=== PATIENT | female | born 1985 | race Caucasian/White ===

== ENCOUNTER 2019-11-25 15:38 | Emergency (ER) | payer SELFPAY ==
[2019-11-25 15:48] VITALS: BP 124/78; PULSE 83; RESP 16; TEMP 36.7; O2SAT 98; BMI 25.7
--- NOTE | 2019-11-25 15:50 | PC.NURSE ---
[employer] AT BEDSIDE
--- NOTE | 2019-11-25 15:53 | HMH.EDUTC ---
[facility] [place] Clinical Impression: Diarrhea Qualifiers: Diarrhea type: unspecified type Qualified Code(s): R19.7 - Diarrhea, unspecified Disposition: Home, Self-Care Condition on Discharge: Good Instructions: Diarrhea, Preventing the Spread of Coronavirus Discharge Instructions Additional Instructions: Make sure that you are drinking plenty of fluids *Follow up with Family Doctor if symptoms return or worsen Return if needed Straight to ER if any life threatening symptoms Referrals: Provider,Referral, MD [Primary Care Provider] - As needed Forms: Work/School Release Time of Disposition: 15:58 Medical Decision Making - Natalio Inquiry Pt receiving controlled substance: No Natalio was queried for this patient: No Vital Signs: 11/25/19 15:48 Temperature 98.1 F Temperature Source Oral Pulse Rate [Right Radial] 83 Respiratory Rate 16 Blood Pressure [Right Arm] 124/78 Blood Pressure Mean [Right Arm] 93 Blood Pressure Source [Right Arm] Automatic Cuff Blood Pressure Position [Right Arm] Sitting 02 Sat by Pulse Oximetry 98 Oxygen Delivery Method Room Air - Reevaluation(s) Time: 16:01 Reevaluation #1: Patient states that she is not having any diarrhea today, denies abdominal pain, denies feeling of being sick at this time Reports need a note for work [facility] [place] - General Stated complaint: needs a release to return ti work Time Seen by Provider: 11/25/19 15:54 Mode of Arrival: Ambulatory Source of Information: Patient Limitations: No Limitations Description of Symptoms (Recalled from Triage Doc. by RN): PT STATES THAT SHE HAD TO CALL IN TO WORK YESTERDAY FOR [employer] AND SHE ADVISES THAT SHE NEEDS A NOTE IN ORDER TO RETURN BECAUSE THEY SAID SHE HAD TO BE RELEASED FROM MEDICAL CARE. HEENT Symptoms (Recalled from RN notes): No Resp Symptoms (Recalled from RN notes): No Skin Symptoms (Recalled from RN notes): No MS Symptoms (Recalled from RN notes): No Functional Status (Recalled from RN notes): N/A - History of Present Illness Provider Complaint: Patient state thats she has a history of intermittent diarrhea on and off that has been happening for years State that she hasnt been dx with irritable bowel but suspected States that yesterday she hadn't had a good bowel movement for about 2 weeks and she she woke up yesterday with diarrhea. States that she had several eppisodes yesterday and was unable to work so she called in States that work told her she had to be seen before she would be allowed to come back States that today diarrhea has stopped, denies fever, denies sore throat, denies chills, denies recent travel or known exposure to covid 19 - Related Data Home Medications Medication Instructions Recorded Confirmed No Known Home Medications 04/30/19 10/06/19 Allergies Allergy/AdvReac Type Severity Reaction Status Date / Time Penicillins Allergy Verified 10/06/19 13:53 sulfamethoxazole Allergy Verified 10/06/19 13:53 [From ] trimethoprim [From ] Allergy Verified 10/06/19 13:53 - Worker's Comp Is this a Worker's Comp case?: No [facility] History - Hepatitis A Screen Drug use history?: No High risk sexual behaviors?: No History of sexually transmitted infection?: No Currently employed?: No Childcare worker?: No Do you have indoor plumbing?: Yes Do you have electricity?: Yes Attestation statement:: This patient has been screened for Hepatitis A risk factors. I have reviewed the patient's past medical history: Yes Medical History: Denies:: Cancer, Diabetes Mellitus Type 1, Diabetes Mellitus Type 2, MRSA Other Surgeries: Yes: No Previous Surgery Amputation: No Fractures: No - Social History Smoking Status: Former smoker Alcohol Intake: never Alcohol Intake Frequency:: a few times a month Substance Use Type: unknown Occupational Status: employed Family Hx:: Non-contributory ROS Obtained: Yes All systems reviewed & no additional complaints, Yes Systems reviewed as
[2019-11-25 16:22] VITALS: BP 124/78; PULSE 83; RESP 16; TEMP 36.7; O2SAT 98
== END 2019-11-25 16:23 | disposition home or self-care (01) ==
PROVIDERS: Emergency Provider Nurse Practitioner
DX: R19.7 Diarrhea, unspecified (principal); Z88.0 Allergy status to penicillin; Z88.2 Allergy status to sulfonamides
CPT/HCPCS: 99201

== ENCOUNTER 2021-03-28 15:24 | Emergency (ER) | payer SELFPAY ==
[2021-03-28 17:19] VITALS: BP 130/84; PULSE 64; RESP 12; TEMP 36.9; O2SAT 100; BMI 26.1
--- NOTE | 2021-03-28 17:20 | XR_ITS ---
PROCEDURE INFORMATION: Exam: XR Chest Exam date and time: 03/28/2021 5:20 PM Age: 35 years old Clinical indication: Chest wall pain; Patient HX: Posterior left sided back pain; Additional info: SOB TECHNIQUE: Imaging protocol: XR of the chest. Views: 2 views. COMPARISON: CR CXR2V XR chest 2V 11/17/2017 1:22 PM FINDINGS: Lungs: Unremarkable. No consolidation. Pleural spaces: Unremarkable. No pleural effusion. No pneumothorax. Heart/Mediastinum: Unremarkable. No cardiomegaly. Bones/joints: Unremarkable. IMPRESSION: No acute findings.
--- NOTE | 2021-03-28 17:44 | HMH.EDUTC ---
[facility] [place] Disposition Clinical Impression: Pleurisy Disposition: Home, Self-Care Condition on Discharge: Good Instructions: Pleurisy, DI for Pleurisy Additional Instructions: Drink plenty of fluids. Take tylenol or ibuprofen for pain or fever. Take the medications as directed. Follow up with your regular doctor. GO TO THE ER FOR ANY WORSENING SYMPTOMS The cough medication (promethazine dm) will make you drowsy, so don't drive or operate heavy machinery after taking it. Prescriptions: methylPREDNISolone [Medrol] 4 mg PO DIRECTED 6 Days #21 tab.ds.pk Transmission Status: Received by [facility] # Azithromycin [Z-Jaret 250mg Tab*] 250 mg PO UD DOSE PK #6 tab Transmission Status: Received by [facility] # Referrals: Provider,Referral, [Primary Care Provider] - Time of Disposition: 17:46 Medical Decision Making - Medical Records Medical records reviewed: No: I reviewed the patient's medical records. - Natalio Inquiry Pt receiving controlled substance: No Vital Signs: 03/28/21 17:19 03/28/21 18:01 Temperature 98.4 F 98.4 F Temperature Source Oral Pulse Rate 64 Pulse Rate [Left] 64 Respiratory Rate 12 14 Blood Pressure 130/84 Blood Pressure [Right Arm] 130/84 Blood Pressure Mean [Right Arm] 99 02 Sat by Pulse Oximetry 100 [facility] [place] HPI - General Stated complaint: trouble breathing, back pain, headache Time Seen by Provider: 03/28/21 17:45 Mode of Arrival: Ambulatory Source of Information: Patient Limitations: No Limitations Description of Symptoms (Recalled from Triage Doc. by RN): pt c/o soa that comes and goes, lung pain, low grade fever and BENAVIDES. HEENT Symptoms (Recalled from RN notes): Yes (BENAVIDES) Resp Symptoms (Recalled from RN notes): Yes (soa and lung pain) Skin Symptoms (Recalled from RN notes): No MS Symptoms (Recalled from RN notes): No Functional Status (Recalled from RN notes): na - History of Present Illness Provider Complaint: She reports a cough and right sided middle back pain with deep breathing and cough - Related Data Previous Rx's Medication Instructions Recorded Azithromycin [Z-Jaret 250mg Tab*] 250 mg PO UD DOSE PK #6 tab 03/28/21 methylPREDNISolone [Medrol] 4 mg PO DIRECTED 6 Days #21 03/28/21 tab.ds.pk Allergies Allergy/AdvReac Type Severity Reaction Status Date / Time Penicillins Allergy Verified 10/06/19 13:53 sulfamethoxazole Allergy Verified 10/06/19 13:53 [From ] trimethoprim [From ] Allergy Verified 10/06/19 13:53 - Worker's Comp Is this a Worker's Comp case?: No [facility] History - Hepatitis A Screen Drug use history?: No High risk sexual behaviors?: No History of sexually transmitted infection?: No Currently employed?: No Childcare worker?: No Do you have indoor plumbing?: Yes Do you have electricity?: Yes Attestation statement:: This patient has been screened for Hepatitis A risk factors. I have reviewed the patient's past medical history: Yes Medical History: Denies:: Cancer, Diabetes Mellitus Type 1, Diabetes Mellitus Type 2, MRSA Other Surgeries: Yes: No Previous Surgery Amputation: No Fractures: No - Social History Smoking Status: Former smoker Alcohol Intake: never Alcohol Intake Frequency:: a few times a month Substance Use Type: unknown Occupational Status: employed Family Hx:: Non-contributory ROS Obtained: Yes All systems reviewed & no additional complaints - Constitutional Constitutional: Reports system reviewed and no additional complaints, except as docu - Eyes Eyes: Reports system reviewed and no additional complaints, except as docu - ENT Ears, Nose, Mouth, and Throat: Reports system reviewed and no additional complaints, except as docu - Cardiovascular Cardiovascular: Reports system reviewed and no additional complaints, except as docu - Respiratory Respiratory: Reports system reviewed and no additional complaints, except as docu -
[2021-03-28 18:01] VITALS: BP 130/84; PULSE 64; RESP 14; TEMP 36.9
== END 2021-03-28 18:10 | disposition home or self-care (01) ==
PROVIDERS: Emergency Provider Nurse Practitioner Family
DX: R09.1 Pleurisy (principal); M54.9 Dorsalgia, unspecified; Z88.0 Allergy status to penicillin; Z88.2 Allergy status to sulfonamides; Z87.891 Personal history of nicotine dependence
CPT/HCPCS: 71046; 99202; G0463

== ENCOUNTER → 2021-07-31 17:28 | Outpatient (CLI) | payer BC, SELFPAY | PROVIDERS: Visit Provider Nurse Practitioner Family | DX: Z20.822 Contact with and (suspected) exposure to COVID-19 (principal); J02.9 Acute pharyngitis, unspecified | CPT/HCPCS: C9803; U0003; U0005 ==

== ENCOUNTER 2021-08-01 14:41 | Emergency (ER) | payer BC, SELFPAY ==
[2021-08-01 14:55] VITALS: BP 124/89; PULSE 81; RESP 18; TEMP 36.8; O2SAT 99; BMI 26.7
[2021-08-01 15:00] LABS: UTC Strep Screen (Rapid) Negative (Negative)
--- NOTE | 2021-08-01 15:40 | HMH.EDUTC ---
[facility] [place] Disposition Clinical Impression: Acute bronchitis Qualifiers: Bronchitis organism: unspecified organism Qualified Code(s): J20.9 - Acute bronchitis, unspecified Sinusitis Qualifiers: Sinusitis location: unspecified location Chronicity: acute Recurrence: non-recurrent Qualified Code(s): J01.90 - Acute sinusitis, unspecified Disposition: Home, Self-Care Condition on Discharge: Good Instructions: Acute Bronchitis, DI for Sinusitis, DI for Acute Bronchitis Additional Instructions: Drink plenty of fluids. Take tylenol or ibuprofen for pain or fever. Take the medications as directed. Follow up with your regular doctor. GO TO THE ER FOR ANY WORSENING SYMPTOMS The cough medication (promethazine dm) will make you drowsy, so don't drive or operate heavy machinery after taking it. Prescriptions: Promethazine/Dextromethorphan [Promethazine-Dm Syrup] 5 ml PO Q6HP PRN #240 ml PRN Reason: Cough [facility] methylPREDNISolone [Medrol] 4 mg PO DIRECTED 6 Days #21 packet Transmission Status: [facility] guaiFENesin [Mucinex 600mg tablet] 1 - 2 tab PO BIDP PRN #30 tab PRN Reason: Congestion Transmission Status: [facility] Azithromycin [Z-Jaret 250mg Tab*] 250 mg PO UD DOSE PK #6 tab Transmission Status: [facility] Referrals: Provider,Referral, [Primary Care Provider] - Forms: Work/School Release Time of Disposition: 16:33 Medical Decision Making - Medical Records Medical records reviewed: No: I reviewed the patient's medical records. - Natalio Inquiry Pt receiving controlled substance: No Vital Signs: 08/01/21 14:55 08/01/21 16:39 Temperature 98.2 F 98.2 F Temperature Source Oral Pulse Rate 81 Pulse Rate [Left] 81 Respiratory Rate 18 18 Blood Pressure 124/89 Blood Pressure [Right Arm] 124/89 Blood Pressure Mean [Right Arm] 100 02 Sat by Pulse Oximetry 99 - Lab Data Lab results reviewed: Yes: I reviewed the patient's lab results. Lab Results 08/01/21 14:54: Strep Scn Rapid Clinic Negative Orders (Tests/Meds): ORDERS Category Date Time Status Strep Screen Confirmation Routine Micro 08/01/21 14:54 Received [facility] [place] HPI - General Stated complaint: cough,runny nose,sore throat Time Seen by Provider: 08/01/21 15:40 Mode of Arrival: Ambulatory Source of Information: Patient Limitations: No Limitations Description of Symptoms (Recalled from Triage Doc. by RN): pt c/o congestion, cough, nasal drainage and a sore throat. pt exposed to covid at work. pt has had 3 negative covid tests in the last two days. HEENT Symptoms (Recalled from RN notes): Yes Resp Symptoms (Recalled from RN notes): Yes Skin Symptoms (Recalled from RN notes): No MS Symptoms (Recalled from RN notes): No Functional Status (Recalled from RN notes): wnl - History of Present Illness Provider Complaint: She states that she has had chest congestion, sinus congestion, productive cough, and malaise for the past 3 days. She works at a [employer]. She has had 3 negative covid-19 test since her symptoms began. - Related Data Previous Rx's Medication Instructions Recorded Azithromycin [Z-Jaret 250mg Tab*] 250 mg PO UD DOSE PK #6 tab 08/01/21 Promethazine/Dextromethorphan 5 ml PO Q6HP PRN #240 ml 08/01/21 [Promethazine-Dm Syrup] guaiFENesin [Mucinex 600mg tablet] 1 - 2 tab PO BIDP PRN #30 tab 08/01/21 methylPREDNISolone [Medrol] 4 mg PO DIRECTED 6 Days #21 08/01/21 packet Allergies Allergy/AdvReac Type Severity Reaction Status Date / Time Penicillins Allergy Verified 07/31/21 15:19 sulfamethoxazole Allergy Verified 07/31/21 15:19 [From ] trimethoprim [From ] Allergy Verified 07/31/21 15:19 - Worker's Comp Is this a Worker's Comp case?: No [facility] History - Hepatitis A Screen Drug use history?: No High risk sexual behaviors?: No History of sexually
[2021-08-01 16:39] VITALS: BP 124/89; PULSE 81; RESP 18; TEMP 36.8
== END 2021-08-01 16:47 | disposition home or self-care (01) ==
PROVIDERS: Emergency Provider Nurse Practitioner Family
DX: J20.9 Acute bronchitis, unspecified (principal); J01.90 Acute sinusitis, unspecified
CPT/HCPCS: 87880; 99202; G0463

== ENCOUNTER 2023-04-18 13:22 | Emergency (ER) | payer SELFPAY ==
[2023-04-18 13:31] VITALS: BP 136/67; PULSE 71; RESP 16; TEMP 36.7; O2SAT 99; BMI 24.9
--- NOTE | 2023-04-18 13:54 | XR_ITS ---
FINAL REPORT CLINICAL HISTORY: injuy to left arm, pain diffuse intermittent FINDINGS: Left hand Two views were obtained. There is no acute fracture or dislocation. The joint spaces appear normal. No soft tissue abnormality is identified. IMPRESSION: No acute process. Reviewed, Interpreted and Dictated by Nathan Templeton III, MD Transcribed by Kyra Villasenor Authenticated and [facility]
--- NOTE | 2023-04-18 13:54 | XR_ITS ---
FINAL REPORT CLINICAL HISTORY: injuy to left arm, pain diffuse intermittent, HIT BY A GOAT FINDINGS: Left humerus Three views were obtained. There is no acute fracture or dislocation. The joint spaces appear normal. No soft tissue abnormality is identified. IMPRESSION: No acute process. Reviewed, Interpreted and Dictated by Nathan Templeton III, MD Transcribed by Kyra Villasenor Authenticated and [facility]
--- NOTE | 2023-04-18 13:54 | XR_ITS ---
FINAL REPORT CLINICAL HISTORY: injuy to left arm, pain diffuse intermittent FINDINGS: Left forearm Two views were obtained. There is no acute fracture or dislocation. The joint spaces appear normal. No soft tissue abnormality is identified. IMPRESSION: No acute process. Reviewed, Interpreted and Dictated by Nathan Templeton III, MD Transcribed by Kyra Villasenor Authenticated and [facility]
--- NOTE | 2023-04-18 14:15 | HMH.EDGENADL ---
Discharge Plan Disposition Patient Disposition: Home, Self-Care Chief Complaint: PAIN Prescriptions Prescriptions: No Action promethazine-DM 120 ML syrup 5 ml PO Q6HP PRN (Reason: Cough) Qty: 240 0RF azithromycin 250 MG tablet 250 mg PO UD DOSE PK Qty: 6 0RF Rx Instructions: Take two (2) tablets today, then one (1) tablet days #2 thru #5 methylprednisolone 4 MG tablets,dose pack 4 mg PO DIRECTED 6 Days Qty: 21 0RF guaifenesin 600 MG tablet extended release 12hr 1 - 2 tab PO BIDP PRN (Reason: Congestion) Qty: 30 0RF Referrals Follow up/Referrals: Provider,Referral, [Primary Care Provider] - See instructions Chin Vazquez DO [Staff Physician] - See instructions Activity Restrictions/Add. Instructions Additional Instructions/Restrictions: At this time was felt you are safe to be discharged home. If new or worsening symptoms please do not hesitate to return the emergency department. Please call and schedule an appointment to follow-up with Dr. Vazquez early next week as you are able. Clinical Impressions Clinical Impression: Arthropathy, traumatic, elbow Discharge ED Provider: Jensen Gross General Adult HPI General Chief complaint: PAIN Stated complaint: [id number] left elbow,forehead,shoulder Time Seen by Provider: 04/18/23 14:00 Mode of Arrival: Ambulatory Source of Information: Patient Limitations: No Limitations Description of Symptoms (Recalled from ER Triage Doc. by RN): 37 yo F presents to ED with c/o left arm pain. pt was working goats two nights ago. 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 History of Present Illness HPI narrative: Patient is a 37-year-old female, right-handed who presents emergency department for evaluation of left elbow pain. Patient was working 2 nights ago when a door swung open striking her in the left elbow causing severe pain. Patient has limited range of motion since causing her to present here for continued evaluation. No other acute complaints at this time. Related Data Previous Rx's Medication Instructions Recorded azithromycin 250 mg tablet 250 mg PO UD DOSE PK #6 tabs 08/01/21 guaifenesin 600 mg tablet, 1 - 2 tab PO BIDP PRN Congestion 08/01/21 extended release 12 hr #30 tabs methylprednisolone 4 mg tablets in 4 mg PO DIRECTED 6 days #21 08/01/21 a dose pack packets promethazine-DM 6.25 mg-15 mg/5 mL 5 ml PO Q6HP PRN Cough #240 mL 08/01/21 oral syrup Allergies Allergy/AdvReac Type Severity Reaction Status Date / Time Penicillins Allergy Verified 07/31/21 15:19 sulfamethoxazole Allergy Verified 07/31/21 15:19 [From ] trimethoprim [From ] Allergy Verified 07/31/21 15:19 [facility] Disclaimer: The information contained in this section may have been updated after the patient was seen, as this information can be updated by other users. Social History Smoking Status: Never smoker alcohol intake: never substance use type: denies use and unknown current occupational status: employed Travel in the last 8 weeks: None ROS Obtained: Yes Systems reviewed as appropriate & no additional complaints except as documented Physical Exam General General appearance: alert and in no apparent distress Head Head exam: atraumatic and normocephalic Eye Eye exam: Present PERRL and EOMI ENT ENT exam: Present mucous membranes moist Neck Neck exam: Present normal inspection Chest Chest inspection: Present normal inspection and symmetric chest wall rise Respiratory Respiratory exam: Present normal lung sounds bilaterally; Absent respiratory distress Cardiovascular Cardiovascular exam: Present regular rate and normal rhythm Abdominal Exam Abdominal exam: Present soft Extremities Exam Extremities exam: Present normal inspection and other (Swollen left elbow with overlying bruising, limited active and passive range of motion at the elbow secondary to severe pain. Palpable 2
--- NOTE | 2023-04-18 14:21 | XR_ITS ---
FINAL REPORT CLINICAL HISTORY: trauma FINDINGS: Left elbow Three views were obtained. There is no acute fracture or dislocation. The joint spaces appear normal. No joint effusion is identified. No soft tissue abnormality is identified. IMPRESSION: No acute process. Reviewed, Interpreted and Dictated by Nathan Templeton III, MD Transcribed by Kyra Villasenor Authenticated and [facility]
[2023-04-18 14:30] VITALS: BP 141/91; PULSE 78; O2SAT 100
[2023-04-18 15:00] VITALS: BP 110/75; PULSE 71; O2SAT 98
[2023-04-18 16:07] VITALS: BP 110/83; PULSE 76; RESP 20; TEMP 36.8; O2SAT 98
== END 2023-04-18 16:08 | disposition home or self-care (01) ==
PROVIDERS: Nurse Practitioner Obstetrics & Gynecology; Emergency Provider Emergency Medicine
DX: M25.522 Pain in left elbow (principal); W22.8XXA Striking against or struck by other objects, initial encounter
CPT/HCPCS: 73060; 73080; 73090; 73120; 99285

== ENCOUNTER 2024-02-12 09:07 | Day surgery (SDC) | payer SELFPAY ==
[2024-02-12] VITALS (16 sets, daily range): BP systolic 98–139; BP diastolic 55–95; PULSE 80–122; RESP 16–20; TEMP 36.7–37.2; O2SAT 96–99; BMI 26.6
--- NOTE | 2024-02-12 09:42 | ED_ITS ---
Discharge Plan Disposition Patient Disposition: Still a Patient Condition: Serious Clinical Impressions Clinical Impression: Miscarriage Discharge ED Provider: Sydnee Canales General Adult HPI General Chief complaint: Urogenital-Female Stated complaint: vaginal bleeding Time Seen by Provider: 02/12/24 09:19 Mode of Arrival: Ambulatory Source of Information: Patient Limitations: No Limitations Description of Symptoms (Recalled from ER Triage Doc. by RN): pt c/o heavy vaginal bleeding with her menstrual cycle. LMP yesterday. pt reports she has completely saturated 8 super tampons since 0600. pt denies pain or other symptoms. pt does reports she was having sharp LLQ pain yesterday that was relieved when she applied pressure. History of Present Illness HPI narrative: Patient is a 38-year-old with past medical history significant for limited primary care who presents to the emergency department with heavy vaginal bleeding. Patient usually has regular menstrual periods once a month however this period that started yesterday has been extremely heavy with multiple clots. Denies any foreign bodies or trauma. Does not use control. Not trying to get . Last Pap smear approximately 12 years ago. Notes over the last 1 to 2 years increased pain with sex. Started to feel a little anxious and weak with heavy bleeding so decided to come to the emergency department. Has gone through 8 super tampon since 6 AM. Notes lower abdominal and lower back cramping that she describes as consistent with period cramps. No prior surgical history. No nausea vomiting diarrhea dysuria. Notes constipation that is normal for her. Related Data Previous Rx's Medication Instructions Recorded azithromycin 250 mg tablet 250 mg PO UD DOSE PK #6 tabs 08/01/21 guaifenesin 600 mg tablet, 1 - 2 tab PO BIDP PRN Congestion 08/01/21 extended release 12 hr #30 tabs methylprednisolone 4 mg tablets in 4 mg PO DIRECTED 6 days #21 08/01/21 a dose pack packets promethazine-DM 6.25 mg-15 mg/5 mL 5 ml PO Q6HP PRN Cough #240 mL 08/01/21 oral syrup Allergies Allergy/AdvReac Type Severity Reaction Status Date / Time Sulfa (Sulfonamide Allergy Verified 02/12/24 09:26 Antibiotics) sulfamethoxazole Allergy Verified 02/12/24 09:26 [From ] trimethoprim [From ] Allergy Verified 02/12/24 09:26 [facility] Disclaimer: The information contained in this section may have been updated after the patient was seen, as this information can be updated by other users. Social History Smoking Status: Current every day smoker alcohol intake: never substance use type: denies use and unknown current occupational status: employed Travel in the last 8 weeks: None ROS Obtained: Yes All systems reviewed & no additional complaints except as documented Physical Exam General General appearance: alert and in no apparent distress Head Head exam: atraumatic and normocephalic Eye Eye exam: Present PERRL ENT ENT exam: Present normal oropharynx and mucous membranes moist Neck Neck exam: Present full ROM and trachea midline Chest Chest inspection: Present normal inspection and symmetric chest wall rise Respiratory Respiratory exam: Present respiratory distress Cardiovascular Cardiovascular exam: Present regular rate and tachycardia Abdominal Exam Abdominal exam: Present soft; Absent distention or tenderness Back Exam Back exam: Absent tenderness Neurological Exam Neurological exam: Present alert and normal gait Skin Skin exam: Present warm and dry Medical Decision Making Natalio Inquiry Pt receiving controlled substance: No Vital Signs: 02/12/24 09:20 02/12/24 10:00 02/12/24 10:57 Temperature 98.3 F Temperature Source Oral Pulse Rate 112 H 84 Pulse Rate [Left] 122 H Respiratory Rate 20 Blood Pressure 139/94 H 110/87 Blood Pressure [Right Arm] 137/95 H Blood Pressure Mean 108 95 Blood Pressure Mean [Right Arm] 109 Blood Pressure Source [Right Arm] Automatic Cuff Blood Pressure Position [Right Arm] Sitting 02 Sat by Pulse Oximetry 96 97 98 Oxygen Delivery Method Room Air 02/12/24 11:00 02/12/24 11:54 02/12/24 12:00 Temperature Temperature Source Pulse Rate 81 96 H 95 H Pulse Rate [Left] Respiratory Rate Blood Pressure 125/90 113/69 118/86 Blood Pressure [Right Arm] Blood Pressure Mean 99 88 94 Blood Pressure Mean [Right Arm] Blood Pressure Source [Right Arm] Blood Pressure Position [Right Arm] 02 Sat by Pulse Oximetry 99 96 97 Oxygen Delivery Method 02/12/24 13:20 Temperature 98.3 F Temperature Source Oral Pulse Rate 91 H Pulse Rate [Left] Respiratory Rate 20 Blood Pressure 112/77 Blood Pressure [Right Arm] Blood Pressure Mean Blood Pressure Mean [Right Arm] Blood Pressure Source [Right Arm] Blood Pressure Position [Right Arm] 02 Sat by Pulse Oximetry Oxygen Delivery Method Room Air Lab Data Lab Results 02/12/24 09:34: WBC 7.4, RBC 3.93 L, Hgb 12.1 L, Hct 36.2 L, MCV 92.0, MCH 30.7, MCHC 33.3, RDW 13.1, Plt Count 344, MPV 7.5, Neut % (Auto) 70.3, Lymph % (Auto) 22.3, [place] % (Auto) 5.0, Eos % (Auto) 2.0, Baso % (Auto) 0.4, Neut # (Auto) 5.2, Lymph # (Auto) 1.6, [place] # (Auto) 0.4, Eos # (Auto) 0.2, Baso # (Auto) 0.0, PT 10.9, INR 0.97, Sodium 138, Potassium 3.4 L, Chloride 107, Carbon Dioxide 22, Anion Gap 12.4, BUN 5 L, Creatinine 0.50 L, Estimated Creat Clear 171, Estimated GFR 139, Est GFR ( Amer) 168, Glucose 126 H, Calcium 8.9, Magnesium 1.6, Total Bilirubin 0.4, AST 36, ALT 29, Alkaline Phosphatase 51, Total Protein 6.9, Albumin 4.2, Globulin 2.7, Albumin/Globulin Ratio 1.6, TSH 1.13, Free T4 0.86, Serum HCG, Qual Positive, HCG, Quant 832 H, Blood Type A Positive, Antibody Screen Negative 02/12/24 09:34 02/12/24 09:34 Orders (Tests/Meds): ED MEDICATIONS Generic Name Dose Route Start Last Admin Trade Name Freq PRN Reason Stop Dose Admin Hydromorphone HCl 0.5 mg 02/12/24 14:06 Hydromorphone 2mg/Ml Syringe IV 02/12/24 16:06 Q5MINP PRN Severe Pain (7-10) Ketorolac Tromethamine 30 mg 02/12/24 14:06 Ketorolac 30mg/Ml Vial IV 02/12/24 16:06 ONCE PRN Mild Pain (1-3) Meperidine HCl 25 mg 02/12/24 14:06 Meperidine 25mg/Ml 1ml Syringe IV 02/12/24 16:06 Q5MINP PRN Shivering Morphine Sulfate 2 mg 02/12/24 14:06 Morphine 2mg/Ml Syringe IV 02/12/24 16:06 Q5MINP PRN Moderate Pain (4-6) Ondansetron HCl 4 mg 02/12/24 14:06 Ondansetron 4mg/2ml Vial IV 02/12/24 16:06 Q6HP PRN Nausea Promethazine HCl 6.25 mg 02/12/24 14:06 Promethazine Hcl 25mg/Ml 1ml Vial IV 02/12/24 16:07 [id number] PRN Nausea And Vomiting Sodium Chloride 25 ml 02/12/24 14:06 Sodium Chloride 0.9% 25ml Bag IV 02/12/24 16:07 NEEDED PRN for Use with IV Promethazine Discontinued Medications Generic Name Dose Route Start Last Admin Trade Name Freq PRN Reason Stop Dose Admin Lactated Ringer's 500 mls @ 999 mls/hr 02/12/24 09:48 02/12/24 09:52 Lactated Ringer's 1000 Ml Bag IV 02/12/24 10:18 999 mls/hr .Q31M ONE Administration Lactated Ringer's 500 mls @ 999 mls/hr 02/12/24 10:53 Lactated Ringer's 1000 Ml Bag IV 02/12/24 11:23 .Q31M ONE Ketorolac Tromethamine 15 mg 02/12/24 12:29 02/12/24 12:52 Ketorolac 30mg/Ml Vial IV 02/12/24 12:30 15 mg ONCE ONE Administration ORDERS Category Date Time Status Type and Screen Stat BBK 02/12/24 09:34 Completed POCUS Point of Care (ER Only) Stat Exams 02/12/24 10:55 Completed CBC w/Auto Diff [Complete Blood Count Auto Diff] Stat Lab 02/12/24 09:34 Completed CMP [Comprehensive Metabolic Panel] Stat Lab 02/12/24 09:34 Completed Free T4 (Free Thyroxine) Stat Lab 02/12/24 09:34 Completed HCG,Quantitative Stat Lab 02/12/24 09:34 Completed Hemoglobin and Hematocrit Stat Lab 02/12/24 15:05 Received MAG [Magnesium] Stat Lab 02/12/24 09:34 Completed POC Glucose,Bedside Stat Lab 02/12/24 10:53 Ordered PT INR [Prothrombin Time INR] Stat Lab 02/12/24 09:34 Completed Serum [HCG Qualitative, Serum] Stat Lab 02/12/24 09:34 Completed TSH [Thyroid Stimulating Hormone] Stat Lab 02/12/24 09:34 Completed US OB transvaginal Stat Ultrasound 02/12/24 10:53 Completed Medical Decision Narrative: Patient is a 38-year-old with past medical history significant for limited primary care who presents to the emergency department with heavy vaginal bleeding. Upon presentation patient is tachycardic normotensive saturating appropriately on room air afebrile no acute distress. Differential diagnosis includes ectopic uterine fibroids endometriosis malignancy or coagulopathy. Workup included CBC CMP thyroid studies magnesium PT/INR significant for positive test, hemoglobin stable. While in the emergency department patient had syncopal episode in the bathroom. Patient reexamined with appropriate glucose no trauma. Able to get at the bedside with assistance. Transvaginal ultrasound with no intrauterine but likely with retained placenta from active miscarriage. CORRECTIONS LIEUTENANT consulted with recommendations to take patient to the operating room for further evaluation. Procedures Miscellaneous Procedure Procedure Performed: Transabdominal ultrasound indication vaginal bleeding: no gestational sac within the uterus. Critical Care Critical Care Time Critical Care Time: No
[2024-02-12 09:52] LABS: Basophils % 0.4 % (0.1-2.0); Eosinophils # 0.2 K/mm3 (0.0-0.4); Hematocrit 36.2 % (37.0-47.0); Hemoglobin 12.1 g/dL (12.2-16.2); Lymphocytes # 1.6 K/mm3 (0.7-4.5); Lymphocytes % 22.3 % (10-50); Mean Corpuscular HGB Conc 33.3 g/dL (31.8-35.4); Mean Corpuscular Hemoglobin 30.7 pg (27.0-31.2); Mean Platelet Volume 7.5 fl (7.4-10.4); Monocytes # 0.4 K/mm3 (0.1-1.0); Neutrophils # 5.2 K/mm3 (1.8-7.8); Neutrophils % 70.3 % (37.0-80.0); Platelet Count 344 K/mm3 (142-424); Red Blood Count 3.93 M/mm3 (4.20-5.40); Red Cell Distribution Width 13.1 % (11.5-17.5); White Blood Count 7.4 K/mm3 (4.8-10.8)
[2024-02-12] MEDS: LACTATED RINGERS 1000ML 500 ML 999 ML IV (09:52)
[2024-02-12 09:58] LABS: INR 0.97 (0.9-1.1); Prothrombin Time 10.9 seconds (10.1-12.5)
[2024-02-12 10:01] LABS: Alanine Aminotransferase 29 U/L (12-78); Albumin Level 4.2 g/dl (3.5-5.0); Albumin/Globulin Ratio 1.6 (1.1-1.8); Alkaline Phosphatase 51 U/L (38-126); Anion Gap 12.4 mEq/L (5-15); Aspartate Amino Transferase 36 U/L (14-36); Bilirubin,Total 0.4 mg/dl (0.2-1.3); Blood Urea Nitrogen 5 mg/dl (7-17); Calcium 8.9 mg/dl (8.4-10.2); Carbon Dioxide 22 mmol/L (22.0-30.0); Chloride 107 mmol/L (98-107); Creatinine Clearance Estimated 171 mL/min (50-200); Estimated Glomerular Filt Rate 139 ml/min (>60); GFR (African American) 168 ML/MIN (>60); Globulin 2.7 g/dL (1.3-3.2); Glucose 126 mg/dl (74-100); Magnesium 1.6 mg/dl (1.6-2.3); Potassium 3.4 mmoL/L (3.5-5.1); Sodium 138 mmol/L (136-145); Total Protein,Serum 6.9 g/dl (6.3-8.2)
[2024-02-12 10:03] LABS: HCG Qualitative, Serum Positive (Negative)
[2024-02-12 10:24] LABS: Free T4 (Free Thyroxine) 0.86 ng/dl (0.78-2.19)
[2024-02-12 10:31] LABS: Thyroid Stimulating Hormone 1.13 uIU/mL (0.465-4.68)
--- NOTE | 2024-02-12 10:51 | PC.NURSE ---
Called Dietary to get a breakfast tray for this pt
--- NOTE | 2024-02-12 10:53 | US_ITS ---
PROCEDURE INFORMATION: Exam: US , Transvaginal Exam date and time: 02/12/2024 11:07 AM Age: 38 years old Clinical indication: Lmp or gestational age (in weeks): 3weeks unsure lmp; Other: Vaginal bleeding; Additional info: Vaginal bleeding, positive preg LABS AND CLINICAL REPORTS: Last menstrual period start date: 01/20/2024 Gestational age (Established): 3 w 2 d Estimated due date (Established): 10/26/2024 TECHNIQUE: Imaging protocol: Real-time transvaginal obstetrical ultrasound of the maternal pelvis with image documentation. Transvaginal imaging was used for better evaluation of the fetus, adnexa, and/or cervix. COMPARISON: No relevant prior studies available. FINDINGS: Gestation: There is no intrauterine gestation. The endometrial echo complex is heterogeneous and somewhat thickened measuring 15 mm. MATERNAL: Uterus: Uterus measures 9.05 cm x 5.96 cm x 4.51 cm. Right ovary/adnexa: Right ovary measures 2.28 cm x 1.51 cm x 1.76 cm. Right ovarian volume is 3.17 mL. Arterial and venous waveforms are demonstrated within the right ovarian spectral pulse-wave duplex interrogation at the time of study. Left ovary/adnexa: Left ovary measures 3.24 cm x 1.43 cm x 1.5 cm. Left ovarian volume is 3.64 mL. An 11 x 13 x 8 mm dominant follicle is noted. Arterial and venous waveforms are demonstrated within the left ovary on spectral pulse wave duplex interrogation at the time of study. There is trace free pelvic fluid in the cul-de-sac. IMPRESSION: Heterogeneous thickened endometrial echo complex. No intrauterine gestation. Please correlate with serial serum beta HCG levels and follow-up ultrasound.
--- NOTE | 2024-02-12 10:57 | PC.NURSE ---
Dr. Canales at bedside. Pradip Anthony RN also at bedside beginning IVF. Pt is pale, weak, and diaphoretic.
[2024-02-12 11:22] LABS: HCG,Quantitative 832 mIU/ml (0-5.42)
--- NOTE | 2024-02-12 12:00 | PC.NURSE ---
Called radiology to obtain verbal prelim from tvus. Danielle states, No viable IUP, looks like she is actively miscarrying. There is contained products, ovaries look good. Little culdesac fluid . Dr. Canales given this information.
[2024-02-12] MEDS: KETOROLAC 30MG/ML VIAL 15 MG IV (12:52)
--- NOTE | 2024-02-12 14:05 | P.PNANES_ITS ---
[facility] Anesthesia Record Part I Anesthesia Record I Intake, IV Amount: 800 Hydration: Adequate Estimated blood loss (mL): 25 Urine output (mL): 0 Blood Products used (#): none Blood Pressure: 106/63 SaO2: 98 Pulse Rate: 110 Airway Patency: Patent Respiratory Rate: 16 Temperature: 98.9 F Patient is:: Drowsy and Stable Stable to PACU at:: 14:00
--- NOTE | 2024-02-12 14:05 | EXP.ANES.CKL ---
[facility] Disclaimer: The information contained in this section may have been updated after the patient was seen, as this information can be updated by other users. Social History Smoking Status: Current every day smoker alcohol intake: never substance use type: denies use and unknown current occupational status: employed Travel in the last 8 weeks: None [facility] Anesthesia Checklist Patient Identification Patient Identification: Arm Band Structural Data Admitted From: Emergency Dept Planned Operative Procedure/s: D&C with Lauro Suction Consent for Planned Operative Procedure(s) Verified: Yes Verified Documents: Surgical Consent and History and Physical NPO Status Verified Time NPO: 00:00 Additional verifications Anesthesia Reactions: No Airway Assessment Mallampati Score:: Class II C-Spine Mobility Assessed: Yes TMJ Mobility Assessed: Yes Dentition: Good Dentition Neurological Assessment Level of Consciousness: Awake, Alert and Appropriate Anesthesia Plan Anesthesia Risk discussed: Yes Anesthesia Plan: Verified ASA Class: II (E) Anesthesia Type: General
--- NOTE | 2024-02-12 14:12 | SUR.OPER ---
Lilly Suction used; serial number [id number]
--- NOTE | 2024-02-12 14:50 | P.OP_ITS ---
Date of procedure: 02/12/24 Pre-op Diagnosis:: Incomplete , menorrhagia Post-op Diagnosis:: Incomplete , menorrhagia Procedure performed:: Dilation and evacuation with [place] suction at Surgeon:: Cooper Funez MD SUBSCRIPTION CREW LEADER:: Ishmael Owens Anesthesia: LMA Estimated blood loss (mL): 50 Clinical Note:: She is a 38-year-old lady who did not know she was . She began to have extremely heavy periods this morning and came into the ER. While there she was bleeding heavily and had been soaking at least a pad every half an hour. The ER doc estimated she was losing about 250 cc an hour of blood. While in the ER she had a vasovagal when she stood up and passed out. As result of that I elected perform a dilation and evacuation. An ultrasound showed that there was no live intrauterine gestation. There was no fetus seen at all. There was just tissue, likely placenta. Operative findings:: She had an anteverted somewhat bulky uterus. There was moderate amount of tissue within the endometrium. Operative note:: She was taken the operating room where LMA anesthesia was found be adequate. She was prepped and draped in normal sterile fashion in the lithotomy position. Weighted speculum is placed in the vagina and the anterior lip of the cervix was grasped with a tenaculum. The cervix was dilated to 9 mm. Then using a 9 mm curved [place] suction curette I evacuated the uterine contents. This was followed by a gentle curettage. She tolerated the procedure well and was taken to recovery room in excellent condition. All sponge, instrument and needle counts were correct. The estimated blood loss during the surgery was less than 50 cc. Condition: stable Disposition: PACU Specimens:: Products of conception Complications:: none
[2024-02-12 15:10] LABS: Hematocrit 29.7 % (37.0-47.0)
[2024-02-12 15:42] LABS: Hemoglobin 10.2 g/dL (12.2-16.2)
[2024-02-13 07:20] VITALS: BP 106/66; PULSE 91; RESP 20; TEMP 37.2; O2SAT 97
--- NOTE | 2024-02-13 07:20 | P.PNANES_ITS ---
[facility] Anesthesia Record Part II Anesthesia Record Part II Discharge Time: 14:30 Destination: Surgical Day Care (OP Surgery) PACU nurse assessment reviewed?: Yes Patient Condition:: Good Anesthesia Complications:: None Swallowing reflex intact?: Yes Airway Patency: Patent Cyanosis?: No Blood Pressure: 106/66 SaO2: 97 Respiratory Rate: 20 Pulse Rate: 91 Temperature: 98.9 F Mental Status: Alert & Oriented Pain level:: 0 Nausea and/or vomitting:: None Intake, IV Amount: 0 Hydration: Adequate
== END 2024-02-12 16:01 | disposition home or self-care (01) ==
LOC: ER 13:20 → SDC 13:21
PROVIDERS: Emergency Provider Student in an Organized Health Care Education/Training Program; Visit Provider Nurse Practitioner Obstetrics & Gynecology
PROC: (CPT 59812; principal; 2024-02-12 16:00)
DX: N92.0 Excessive and frequent menstruation with regular cycle (principal); O03.4 Incomplete spontaneous abortion without complication
CPT/HCPCS: 59812; 36415; 76817; 80050; 80053; 83735; 84439; 84443; 84702; 84703; 85014; 85018; 85025; 85610; 86850; J1100; J1885; J2250; J2405; J3010; J7120

== ENCOUNTER 2024-03-03 14:51 | Emergency (ER) | payer SELFPAY ==
[2024-03-03 15:05] VITALS: BP 119/84; PULSE 71; RESP 20; TEMP 37.3; O2SAT 97; BMI 26.6
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
--- NOTE | 2024-03-03 15:42 | ED_ITS ---
Discharge Plan Disposition Patient Disposition: Home, Self-Care Condition: Good Prescriptions Prescriptions: New indomethacin 50 mg capsule 50 mg PO TID 5 Days Qty: 15 0RF Rx Instructions: administer with food or milk Referrals Follow up/Referrals: Caron Muro PA [[facility]] - See instructions Chin Vazquez DO [Staff Physician] - See instructions Provider,Referral, [Primary Care Provider] - See instructions Activity Restrictions/Add. Instructions Additional Instructions/Restrictions: Follow up with your Family Doctor if no improvement or any worsening of symptoms Take medication as prescribed NO over the counter Motrin with above Indomethacin Straight to ER if any life threatening symptoms Clinical Impressions Clinical Impression: Pseudogout Stand Alone Forms Stand Alone Forms: Work/School Release Instructions Patient Instructions: DI for Pseudogout, Indomethacin Print Language Print Language: [place] Discharge ED Provider: [place]cedo [facility] [place] General Stated complaint: swollen elbow Mode of Arrival: Ambulatory Source of Information: Patient Limitations: No Limitations Time Seen by Provider: 03/03/24 15:42 Description of Symptoms (Recalled from Triage Doc. by RN): PATIENT C/O SWELLING, REDNESS AND PAIN TO RIGHT ELBOW SINCE YESTERDAY. NO KNOWN INJURY HEENT Symptoms (Recalled from RN notes): No Resp Symptoms (Recalled from RN notes): No Skin Symptoms (Recalled from RN notes): No MS Symptoms (Recalled from RN notes): Yes Functional Status (Recalled from RN notes): WNL History of Present Illness Provider Complaint: Patient states that she noticed yesterday that she had red area on the inside of her right elbow that sore and tender to the touch states she thought it looked a little red and swollen so today and hurts when she moves it, it was still bothering her when she would move it so she came in to get it checked Denies known injury Related Data Previous Rx's ?Medication ?Instructions ?Recorded indomethacin 50 mg capsule 50 mg PO TID 5 days #15 caps 03/03/24 Allergies Allergy/AdvReac Type Severity Reaction Status Date / Time Sulfa (Sulfonamide Allergy Verified 02/12/24 09:26 Antibiotics) sulfamethoxazole Allergy Verified 02/12/24 09:26 [From ] trimethoprim [From ] Allergy Verified 02/12/24 09:26 Worker's Comp Is this a Worker's Comp case?: No [facility] Disclaimer: The information contained in this section may have been updated after the patient was seen, as this information can be updated by other users. Medical History (Updated 03/03/24 @ 17:12 by Rachel Salcedo APRN) Urinary tract infection Social History Smoking Status: Current every day smoker alcohol intake: never substance use type: denies use and unknown current occupational status: employed Travel in the last 8 weeks: None ROS Obtained: Yes All systems reviewed & no additional complaints except as documented and Yes Systems reviewed as appropriate & no additional complaints except as documented Constitutional Constitutional: Reports system reviewed and no additional complaints, except as documented, Reports as per HPI, Denies body ache, Denies chills and Denies fever(s) ENT Ears, Nose, Mouth, and Throat: Reports system reviewed and no additional complaints, except as documented and Reports as per HPI Cardiovascular Cardiovascular: Reports system reviewed and no additional complaints, except as documented, Denies as per HPI and Denies acrocyanosis Respiratory Respiratory: Reports system reviewed and no additional complaints, except as documented and Reports as per HPI Gastrointestinal Gastrointestingal: Reports system reviewed and no additional complaints, except as documented and as per HPI Musculoskeletal Musculoskeletal: Reports system reviewed and no additional complaints, except as documented, Reports as per HPI and Reports other Comments: Pain and redness with mild swelling to right elbow Physical Exam General General appearance: alert and in no apparent distress ENT ENT exam: Present mucous membranes moist Respiratory Respiratory exam: Present normal lung sounds bilaterally; Absent respiratory distress or wheezes Cardiovascular Cardiovascular exam: Present regular rate, normal rhythm and normal heart sounds Expanded Upper Extremity Exam Left: L/R Arms Bottom View: 2 1. mild redness noted, tender to touch, mild swelling able to move fingers easily no open wounds Neurological Exam Neurological exam: Present alert, oriented X3 and normal gait Medical Decision Making Natalio Inquiry Pt receiving controlled substance: No Natalio was queried for this patient: No Vital Signs: 03/03/24 15:05 Temperature 99.2 F Temperature Source Oral Pulse Rate [Left Brachial] 71 Respiratory Rate 20 Blood Pressure [Left Arm] 119/84 Blood Pressure Mean [Left Arm] 95 Blood Pressure Source [Left Arm] Automatic Cuff Blood Pressure Position [Left Arm] Sitting 02 Sat by Pulse Oximetry 97 Oxygen Delivery Method Room Air Lab Data Lab results reviewed: Yes I reviewed the patient's lab results. 03/03/24 16:13 Orders (Tests/Meds): ORDERS Category Date Time Status Elbow XR right minimum 3 views [XR elbow RT min 3V] Exams 03/03/24 15:21 Ordered Stat Uric Acid Stat Lab 03/03/24 15:32 Received Radiology Data #1: Image(s): Elbow Image Reviewed: Yes I have reviewed radiologist's interpretation IMPRESSION: No acute bony abnormality. Medical Decision Narrative: Patient uric acid on high side of normal, no obvious injury, mild warmth and redness noted area tender to the touch will cover for gout and have pateint follow up if no improvement
[2024-03-03 15:56] LABS: Uric Acid 6.1 mg/dl (2.5-6.2)
[2024-03-03 16:36] LABS: Basophils # 0.1 K/mm3 (0-0.2); Basophils % 0.7 % (0.1-2.0); Eosinophils # 0.2 K/mm3 (0.0-0.4); Eosinophils % 2.4 % (0.1-12.0); Hematocrit 35.1 % (37.0-47.0); Hemoglobin 11.6 g/dL (12.2-16.2); Lymphocytes # 2.2 K/mm3 (0.7-4.5); Mean Corpuscular HGB Conc 32.9 g/dL (31.8-35.4); Mean Platelet Volume 8.1 fl (7.4-10.4); Monocytes # 0.5 K/mm3 (0.1-1.0); Monocytes % 6.3 % (1.7-9.3); Neutrophils # 5.1 K/mm3 (1.8-7.8); Neutrophils % 63.6 % (37.0-80.0); Platelet Count 395 K/mm3 (142-424); Red Blood Count 3.74 M/mm3 (4.20-5.40); Red Cell Distribution Width 13.7 % (11.5-17.5)
[2024-03-03 17:16] VITALS: BP 119/84; PULSE 71; RESP 20; TEMP 37.3; O2SAT 97
== END 2024-03-03 17:20 | disposition home or self-care (01) ==
PROVIDERS: Emergency Provider Nurse Practitioner
DX: M11.221 Other chondrocalcinosis, right elbow (principal); M25.521 Pain in right elbow
CPT/HCPCS: 73080; 84550; 85025; 96372; 99212; 99214; G0463